=== PATIENT | male | born 1965 | race Caucasian/White ===

== ENCOUNTER → 2016-04-18 | Outpatient (CLI) | payer OTHER ==
[~2016-04-18] MED LIST: ATOR40TA59 PO; CONTRAST GIVEN MC PRN; DICL75TA PO; DULA0.75 SQ; DULO30CA43 PO; DULO60CA44 PO; FISH1CAP PO; IOHEXOL 300 MG/ML 10ML VIAL. IT ONE; LIDOCAINE 1% Multi-Dose 20 ML VIAL. ID ONE; LISI1TAB3 PO; MECL25TA3 PO; METF500T4 PO; MULT-685 PO; OMEP20CA9 PO; OXYC-323 PO
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
== END | disposition home or self-care (01) ==
LOC: KCIC 10:13
PROVIDERS: ATTEND Neurological Surgery
DX: M54.16 Radiculopathy, lumbar region (principal)
CPT/HCPCS: 72110; 72126; 72132; 72270; Q9967